=== PATIENT | male | born 1945 | race Caucasian/White ===

== ENCOUNTER 2018-07-28 13:32 | Emergency (ER) | payer OTHER ==
--- OUTSIDE RECORDS SUMMARY | 2018-07-28 13:44 | XMS REPORT | Continuity of Care Document ---
:1945 External Reference #:[id number] Author Name Manny Olivas MD Address [address] [facility] 1 [place] [address] Care Team Providers Name Role Phone Javed Wallis M.D. Care Team Information Packaging Associate Unavailable Manny Olivas MD Primary Care Physician Unavailable Payers Date Identification Numbers Payment Provider Subscriber Policy Number: [id number] Lifetime Benefit Solution Jimmie Valentino Group Number: [id number] [address] [address] PayID: [id number] STEFF Guzman [id number] Expires: 2000 Policy Number: [id number] Medicare Part B Jimmie Valentino PayID: [id number] [address] [place] [address] Advance Directives Description No Information Available Problems Date Description Provider Status Onset: 11/03/2012 Malignant tumor of lung Active Note: Stage Iib 05/31 L.[address]. adjacent to tumor. Dr. Lipscomb and Dr. Wallis follow pt. Diagnosed July 2006 had RLL lobectomy. Recurrence noted Apr 01, 2012.. Onset: 11/03/2012 Obese Active Onset: 11/03/2012 Malabsorption of glucose Active Note: borderline w FBS around 108.. Onset: 11/03/2012 Pulmonary emphysema Active Onset: 11/03/2012 Hypertensive disorder Active Onset: 11/03/2012 Hyperlipidemia Active Onset: 11/03/2012 Pulmonary embolism Active Note: Diagnosed in September 2012, during chemoradiation, managed by Dr. Wallis.. Onset: 04/30/2011 First degree atrioventricular block Active Note: and poor R wave progression in khushboo-septal leads, no change back to December 17, 2009 (and prior).. Onset: 10/03/2015 Gastroesophageal reflux disease Manny Olivas MD Active Onset: 04/28/2016 Raised prostate specific antigen Manny Olivas MD Active Note: PSA 5.0 on 04-25-16, was 3.7 on 03-28-15, s/p robotic prostatectomy September 03, [address] Kvng Arce Onset: 09/15/2016 Malignant tumor of prostate Manny Olivas MD Active Note: s/p robotic prostatectomy Jun 2016, Dr. Kvng Arce Riparius 3 + 3 Family History Description No Information Available Social History Type Date Description Comments Sex Unknown Tobacco Use Start: Unknown Patient has never smoked Allergies, Adverse Reactions, Alerts Description No Known Drug Allergies Medications Medication Date Status Form Strength Qnty SIG Indications Ordering Provider Cialis 07/25 Active Tablets 5mg 30tab 1 by mouth every s day Cora dupree MD Ranitidine 10/07 Active Capsules 300mg 180ca take 2 by mouth K21.9 Manny ps daily Cora dupree MD Atorvastatin 10/07 Active Tablets 40mg 90tab Take One Tablet Manny s By Mouth Every Day MD leia Vitamin D 09/22 Active Tablets 1000Unit 30tab 10 by mouth s every week Cora dupree MD Selenium 09/22 Active Capsules 200mcg 1 tablet a day. Cora dupree MD Glucosamine 09/22 Active Capsules 1500Com 90cap 1 by mouth every Manny s day Cora 1500 Complex MD leia Maximum Strength Valtrex 10/04 Active Tablets 500mg 180ta take one tablet bs by mouth two Cora times per day MD leia directed Lisinopril 10/04 Active Tablets 20mg 90tab Take One Tablet s By Mouth Every Day MD leia Vitamin C 11/11 Active Tablets 500mg 0tabs Use Directed 2 tabs PO qd Daily 09/24 Active Tablets 0tabs Take one tablet Unknown by mouth daily Vitamins/Mine rals Truvada Active Tablets 200-300mg 1 by mouth every Unknown /0000 day Biotin Active Capsules 5000mcg 1 by mouth every Unknown /0000 day Augmentin 05/19 Hx Tablets 500-125mg 20tab one tab every 12 J20.9 s hours x 10 days Cora dupree MD 06/21 Ranitidine 10/06 Hx Capsules 300mg 90cap 1 by mouth every K21.9 Manny HCL s day Cora dupree MD 04/29 Ranitidine 10/02 Hx Tablets 150mg 180ta take 1 tablet by K21.9 Manny HCL bs mouth 2 times Cristolebache - per day for MD leia 10/06 gastroesophageal reflux disease Boswell 3 09/23 Hx Capsules 1000mg 90cap take one a day s Cora dupree MD 06/21 Flaxseed Oil 09/22 Hx Capsules 1200mg 1 by mouth every day Cora dupree MD 06/21 Aspirin 09/22 Hx Chewtabs 81mg 42uni 1 by mouth every day Cora dupree MD 06/21 Lipitor 10/04 Hx Tablets 40mg 90tab Take one tablet s by mouth daily - 04/29 Omeprazole 03/12 Hx Capsules 40mg 0caps take [address] by oral route - every day before 10/01 a Folic Acid 00/00 Hx Tablets 1mg take 1 tablet Unknown /0000 (1MG) by oral - route every day 10/01 Truvada 00/00 Hx Tablets Unknown /0000 - 04/29 Immunizations CPT Code Status Date Vaccine Lot # [id number] Given 03/03/2017 Influenza Vaccine, High Dose > 65 Years Old [id number] (Includes Medicare) 00534 Given 03/18/2015 Influenza Vaccine, High Dose > 65 Years Old (Includes Medicare) 64228 Given 10/04/2014 Tdap 42000 Given 10/04/2014 Prevnar 13 U-Flu Given 02/15/2014 Influenza,Unspecified 95064 Given 03/02/2012 Influenza Virus Vaccine, [place] 3 [place] [address] Given 04/30/2011 Pneumococcal (Pneumovax 23) 30326 Given 02/28/2011 Influenza Virus Vaccine, [place] [address] Given 02/14/2009 Influenza Virus Vaccine, [place] [address] Given 06/22/2002 Influenza Virus Vaccine, Split [place] [address] Given 06/22/1997 Influenza Virus Vaccine, [place] [address] Given 06/22/1996 Influenza Virus Vaccine, Split [place] [address] Given 06/22/1994 Influenza Virus Vaccine, Split [place] [address] Given 06/22/1993 Influenza Virus Vaccine, Split 3 [place] [address] Given 06/22/1992 Pneumococcal (Pneumovax 23) 48125 Given 06/22/1992 Influenza Virus Vaccine, Split [place] [address] Given 06/22/1991 Influenza Virus Vaccine, Split 3 Yrs AB Vital Signs Date Vital Result Comment 07/25/2018 11:00am Height 70.75 inches 5'10.75" Weight 270.00 lb BMI (Body Mass Index) 37.9 kg/m2 BP Systolic 122 mmHg BP Diastolic 76 mmHg Heart Rate 94 /min O2 % BldC Oximetry 97 % 01/18/2018 1:14pm Height 70.75 inches 5'10.75" Weight 277.00 lb BMI (Body Mass Index) 38.9 kg/m2 BP Systolic 124 mmHg BP Diastolic 80 mmHg Heart Rate 72 /min O2 % BldC Oximetry 98 % 07/21/2017 12:52pm Height 70.75 inches 5'10.75" Weight 266.00 lb BMI (Body Mass Index) 37.4 kg/m2 BP Systolic 124 mmHg BP Diastolic 72 mmHg Heart Rate 76 /min O2 % BldC Oximetry 97 % 12/17/2016 11:41am Height 70.75 inches 5'10.75" Weight 265.00 lb BMI (Body Mass Index) 37.2 kg/m2 BP Systolic 124 mmHg BP Diastolic 68 mmHg Heart Rate 70 /min O2 % BldC Oximetry 98 % 09/15/2016 2:03pm Height 70.75 inches 5'10.75" BP Systolic 106 mmHg BP Diastolic 72 mmHg Heart Rate 87 /min O2 % BldC Oximetry 97 % 08/20/2016 10:28am Height 70.75 inches 5'10.75" BP Systolic 134 mmHg BP Diastolic 86 mmHg Heart Rate 82 /min O2 % BldC Oximetry 98 % 06/22/2016 11:27am Height 70.75 inches 5'10.75" Weight 264.00 lb BMI (Body Mass Index) 37.1 kg/m2 BP Systolic 114 mmHg BP Diastolic 74 mmHg Heart Rate 50 /min O2 % BldC Oximetry 96 % 05/19/2016 8:14am Height 70.75 inches 5'10.75" Weight 266.00 lb BMI (Body Mass Index) 37.4 kg/m2 BP Systolic 128 mmHg BP Diastolic 72 mmHg Heart Rate 76 /min O2 % BldC Oximetry 97 % 04/29/2016 9:56am Height 70.75 inches 5'10.75" Weight 260.38 lb BMI (Body Mass Index) 36.6 kg/m2 BP Systolic 114 mmHg BP Diastolic 72 mmHg Heart Rate 74 /min Respiratory Rate 17 /min 10/03/2015 9:59am Height 69.50 inches 5'9.50" Weight 266.00 lb BMI (Body Mass Index) 38.7 kg/m2 BP Systolic 138 mmHg BP Diastolic 74 mmHg Heart Rate 70 /min Body Temperature 98.1 F Body Temperature 36.7 C O2 % BldC Oximetry 96 % Respiratory Rate 20 /min 04/04/2015 11:32am Height 69.50 inches Weight 259.00 lb BMI (Body Mass Index) 37.70 kg/m2 BP Systolic 128 mmHg BP Diastolic 70 mmHg Heart Rate 89 /min O2 % BldC Oximetry 96 % 10/04/2014 9:12am Height 70.25 inches Weight 257.00 lb BMI (Body Mass Index) 36.61 kg/m2 BP Systolic 118 mmHg BP Diastolic 78 mmHg Heart Rate 82 /min O2 % BldC Oximetry 98 % 05/08/2014 1:57pm BMI (Body Mass Index) 36.61 kg/m2 Heart Rate 88 /min O2 % BldC Oximetry 97 % 05/08/2014 1:57pm Height 70.25 inches Weight 257.00 lb BMI (Body Mass Index) 36.61 kg/m2 BP Systolic 120 mmHg BP Diastolic 80 mmHg Heart Rate 88 /min O2 % BldC Oximetry 97 % 03/12/2014 9:44am Height 70.25 inches Weight 257.62 lb BMI (Body Mass Index) 36.70 kg/m2 BP Systolic 124 mmHg BP Diastolic 77 mmHg Heart Rate 93 /min 09/06/2013 1:03pm Heart Rate 72 /min 09/06/2013 1:03pm Weight 260.00 lb BP Systolic 106 mmHg BP Diastolic 76 mmHg Heart Rate 72 /min 03/09/2013 8:49am Heart Rate 72 /min 03/09/2013 8:49am Weight 249.00 lb BP Systolic 130 mmHg BP Diastolic 80 mmHg Heart Rate 72 /min 11/03/2012 11:07am Heart Rate 92 /min O2 % BldC Oximetry 97 % 11/03/2012 11:07am Weight 247.00 lb BP Systolic 133 mmHg BP Diastolic 83 mmHg Heart Rate 92 /min O2 % BldC Oximetry 97 % 08/10/2012 12:08pm Weight 256.00 lb BP Systolic 144 mmHg BP Diastolic 82 mmHg Heart Rate 74 /min 07/27/2012 4:01pm BP Systolic 172 mmHg BP Diastolic 88 mmHg 07/27/2012 4:01pm Height 71 inches Weight 257.00 lb BMI (Body Mass Index) 35.8 kg/m2 BP Systolic 168 mmHg BP Diastolic 90 mmHg Heart Rate 72 /min 05/09/2012 8:40am Height 70.50 inches Weight 244.00 lb BMI (Body Mass Index) 34.00 kg/m2 BP Systolic 108 mmHg BP Diastolic 62 mmHg Heart Rate 60 /min 03/15/2012 3:40pm BP Systolic 128 mmHg BP Diastolic 70 mmHg Heart Rate 68 /min 11/12/2011 11:44am Weight 253.38 lb BP Systolic 128 mmHg BP Diastolic 81 mmHg Heart Rate 87 /min Body Temperature 99.2 F Body Temperature 37.3 C O2 % BldC Oximetry 96 % 04/30/2011 10:04am Weight 248.00 lb BP Systolic 121 mmHg BP Diastolic 72 mmHg Heart Rate 67 /min O2 % BldC Oximetry 98 % 09/15/2010 11:05am Weight 250.00 lb BP Systolic 123 mmHg BP Diastolic 80 mmHg Heart Rate 80 /min O2 % BldC Oximetry 98 % 05/08/2010 11:11am Weight 254.00 lb BP Systolic 150 mmHg BP Diastolic 59 mmHg Heart Rate 71 /min 12/17/2009 11:20am Height 70.50 inches Weight 245.00 lb BMI (Body Mass Index) 34.00 kg/m2 BP Systolic 123 mmHg BP Diastolic 79 mmHg Heart Rate 60 /min 08/21/2009 9:43am Weight 249.00 lb BP Systolic 133 mmHg BP Diastolic 78 mmHg Heart Rate 66 /min 03/11/2009 1:57pm Weight 240.00 lb BP Systolic 120 mmHg BP Diastolic 70 mmHg Heart Rate 76 /min 10/31/2008 10:27am Weight 240.00 lb BP Systolic 121 mmHg BP Diastolic 77 mmHg Heart Rate 70 /min 09/24/2008 9:59am Weight 247.00 lb BP Systolic 146 mmHg BP Diastolic 95 mmHg Heart Rate 78 /min O2 % BldC Oximetry 98 % 06/27/2008 10:02am Weight 248.00 lb BP Systolic 145 mmHg BP Diastolic 88 mmHg Heart Rate 81 /min O2 % BldC Oximetry 96 % 05/03/2008 10:09am Weight 240.00 lb BP Systolic 143 mmHg BP Diastolic 84 mmHg Heart Rate 79 /min Results Test Date Facility Test Result H/L Range Note Laboratory test 07/21/2017 [facility] Hgb A1c 6.2 % 3.6-6.9 1 finding [address] [place] [address] [phone] Est. Average Glucose 131 mg/dL - 2 Venipuncture DONE - UA 07/21/2017 [facility] Color. YELLOW - [address] [place] [address] [phone] Clarity. CLEAR Clear-Clear Specific [place]. 1.023 1.005-1.030 PH. 5.0 4.6-8.0 Protein. NEGATIVE Neg-Negative Glucose, Urine NEGATIVE Neg-Negative Ketone. NEGATIVE Neg-Negative bilirubin. NEGATIVE Neg-Negative Blood. NEGATIVE Neg-Negative Nitrite. NEGATIVE Neg-Negative Leukocytes. NEGATIVE Neg-Negative 3 Laboratory test 07/21/2017 [facility] PSA <0.01 ng/ml Out 0-4.0 4 finding [address] [place] [address] [phone] CMP-Male 07/21/2017 [facility] Glucose 96 mg/dL 74-106 5 [address] [place] [address] [phone] BUN 20 mg/dL 6-20 Creatinine 1.0 mg/dL 0.5-1.3 Sodium 141 mmol/L 136-145 Potassium 4.5 mmol/L 3.5-5.3 Chloride 108 mmol/L High 98-107 Co2 24 mEq/L 20-31 Anion Gap 9 mmol/L 7-16 eGFR-male 74 mL/m/1.73m - eGFR-Aa male 89 mL/m/1.73m - 6 Alk. Phos. 79 U/L 46-116 Alt 21 U/L 4-36 7 Ast 22 U/L 8-33 Total Bilirubin 0.7 mg/dL 0.3-1.2 Total Protein 6.8 g/dL 6.4-8.3 8 Albumin 4.2 g/dL 3.6-5.1 A/G Ratio 1.6 Ratio 1.0-2.0 Globulin 2.6 g/dL 2.4-3.7 Calcium 8.8 mg/dL Low 8.9-10.5 Laboratory test 07/21/2017 [facility] Free T4 1.00 ng/dL 0.89-1.80 finding [address] [place] [address] [phone] TSH3 1.150 mIU/ml 0.350-5.500 JORDYN 07/21/2017 [facility] Direct Bilirubin 0.2 mg/dL 0.0-0.2 [address] [place] [address] [phone] Liver Panel 07/21/2017 [facility] LDH 154 U/L 120-246 [address] [place] [address] [phone] CBCP 07/21/2017 [facility] WBC 6.2 x10E3/uL 4.2-12.0 [address] [place] [address] [phone] RBC 4.53 x10E6/uL 4.4-6.0 HGB 14.9 g/dL 13.8-18.0 HCT 45.2 % 39-52 MCV 99.8 fL High 80-98 MCH 32.9 pg 27-33 MCHC 32.9 g/dL 32-36 RDW 13.5 % 11.2-15.2 PLT 178 x10E3/uL 135-420 MPV 10.0 fL 7.0-12.3 Cbcadp 08/20/2016 [facility] WBC 6.9 x10E3/uL 4.2-12.0 [address] [place] [address] [phone] RBC 4.68 x10E6/uL 4.4-6.0 HGB 15.3 g/dL 13.8-18.0 HCT 47.4 % 39-52 MCV 101.1 fL High 80-98 MCH 32.6 pg 27-33 MCHC 32.2 g/dL 32-36 RDW 14.3 % 11.2-15.2 PLT 220 x10E3/uL 135-420 MPV 9.6 fL 7.0-12.3 % Edith 69.4 % 41.0-80.0 %Lym 21.5 % 10.0-45.2 %Angelina 8.0 % 2.0-13.0 %Eos 0.9 % 0.0-8.0 %Baso 0.3 % 0.0-3.0 Neut 4.8 x10E3/uL 2.0-8.1 Lymp 1.5 x10E3/uL 0.6-3.1 Angelina 0.6 x10E3/uL 0.0-1.0 Eos 0.1 x10E3/uL 0.0-0.6 Baso 0.0 x10E3/uL 0.0-0.2 CMP-Male 08/20/2016 [facility] Glucose 103 mg/ dL 74-106 9 [address] [place] [address] [phone] BUN 20 mg/dL 6-20 Creatinine 1.1 mg/dL 0.5-1.3 Sodium 142 mmol/L 136-145 Potassium 4.5 mmol/L 3.5-5.3 Chloride 108 mmol/L High 98-107 Co2 26 mEq/L 20-31 Anion Gap 8 mmol/L 7-16 eGFR-male 66 mL/m/1.73m - eGFR-Aa male 80 mL/m/1.73m - 10 Alk. Phos. 86 U/L 46-116 Alt 22 U/L 4-36 Ast 27 U/L 8-33 Total Bilirubin 0.5 mg/dL 0.3-1.2 Total Protein 7.0 g/dL 6.4-8.3 11 Albumin 4.4 g/dL 3.4-4.8 A/G Ratio 1.7 Ratio 1.0-2.0 Globulin 2.6 g/dL 2.4-3.7 Calcium 9.0 mg/dL 8.9-10.5 [facility] 08/20/2016 [facility] Color. YELLOW - [address] [address] [phone] Clarity. CLEAR Clear-Clear Specific [place]. 1.015 1.005-1.030 PH. 5.5 4.6-8.0 Protein. NEGATIVE Neg-Negative Glucose, Urine NEGATIVE Neg-Negative Ketone. NEGATIVE Neg-Negative bilirubin. NEGATIVE Neg-Negative Blood. NEGATIVE Neg-Negative Nitrite. NEGATIVE Neg-Negative Leukocytes. NEGATIVE Neg-Negative Red Blood Cell 0-2 0-2 White Blood Cell 0-2 0-5 Squamous Epithelial Cell 0-2 0-10 Bacteria. NEGATIVE Neg-Negative Laboratory test 08/20/2016 [facility] Culture, Urine See Comment 12 finding [address] [place] [address] [phone] Venipuncture DONE - 13 Laboratory test finding 10/03/2015 [facility] TSH3 <pending> [address] [place] [address] [phone] Free T4 <pending> Free T4 03/28/2015 [facility] Free T4 0.96 ng/ dL [address] [place], [place] [address] [phone] Est. Average 03/28/2015 [facility] Est. Average 137 mg/dL 14 Glucose [address] [place] [address] [phone] CMP-Male 03/28/2015 [facility] A/G Ratio 1.8 Ratio [address] [place] [address] [phone] Albumin 4.5 g/dL Alk. Phos. 92 U/L Alt 19 U/L Anion Gap 8 mmol/L Ast 22 U/L BUN 19 mg/dL Calcium 9.9 mg/dL Chloride 108 mmol/L Co2 27 mEq/L Creatinine 1.1 mg/dL Globulin 2.5 g/dL Glucose 106 mg/dL 15 Potassium 4.6 mmol/L 16 Sodium 143 mmol/L Total Bilirubin 0.8 mg/dL Total Protein 7.0 g/dL 17 eGFR-Aa male 81 mL/m/1.73m 18 eGFR-male 67 mL/m/1.73m Cbcadp 03/28/2015 [facility] % Edith 63.8 % [address] [place] [address] [phone] %Baso 0.2 % %Eos 3.5 % %Lym 24.2 % %Angelina 8.3 % Baso 0.0 x10E3/uL Eos 0.3 x10E3/uL HCT 45.7 % HGB 14.9 g/dL Lymp 1.7 x10E3/uL MCH 31.7 pg MCHC 32.5 g/dL MCV 97.4 fL MPV 11.8 fL Angelina 0.6 x10E3/uL Neut 4.6 x10E3/uL PLT 136 x10E3/uL RBC 4.69 x10E6/uL RDW 15.6 % WBC 7.2 x10E3/uL Vitamin D, 25(Oh). 03/28/2015 [facility] Vitamin D, 22.70 ng/ml [address]). [place] [address] [phone] Venipuncture 03/28/2015 [facility] Venipuncture Done [address] [place] [address] [phone] Uric Acid 03/28/2015 [facility] Uric Acid 8.0 mg /dL [address] [place] [address] [phone] UA 03/28/2015 [facility] Blood. Negative [address] [place], [place] [address] [phone] Clarity. Clear Color. Yellow Glucose, Urine Negative Ketone. Negative Leukocytes. Negative 20 Nitrite. Negative Protein. Negative Specific [place]. 1.024 bilirubin. Negative PH. 5.5 TSH3 03/28/2015 [facility] TSH3 1.[address] mIU/[place] [address] [phone] Random Urine 03/28/2015 [facility] Random Urine 183.8 mg/dL [address] [place] [address] [phone] Random 03/28/2015 [facility] Random <6.0 mg/L [address] [place] [address] [phone] Phosphorus 03/28/2015 [facility] Phosphorus 3.6 mg/dL [address] [address] [phone] PSA 03/28/2015 [facility] PSA 3.7 ng/ml 23 [address] [address] [phone] LPP 03/28/2015 [facility] Cardiac Risk 3.85 Ratio [address] [address] [phone] Cholesterol 181 mg/dL HDL 47 mg/dL Triglycerides 185 mg/dL 24 VLDL 37 mg/dL LDL-Direct 03/28/2015 [facility] LDL-Direct 104 mg/dL [address] [address] [phone] LDH 03/28/2015 [facility] LDH 139 U/L [address] [address] [phone] Hgb A1c 03/28/2015 [facility] Hgb A1c 6.4 % [address] [place] [address] [phone] Phosphorus 09/28/2014 [facility] Phosphorus 3.3 mg/dL [address] [id number] [phone] LPP 09/28/2014 [facility] Cardiac Risk 3.56 Ratio [address] [id number] [phone] Cholesterol 171 mg/dL HDL 48 mg/dL Triglycerides 150 mg/dL 25 VLDL 30 mg/dL LDL-Direct 09/28/2014 [facility] LDL-Direct 108 mg/dL [address] [address] [phone] LDH 09/28/2014 [facility] LDH 142 U/L 26 [address] 6[address]2738 [phone] Hgb A1c 09/28/2014 [facility] Hgb A1c 6.2 % [address] [place] [address] [phone] HIV 1/O/2 09/28/2014 [facility] HIV 1/O/2 Nonreactive [address] [place] [address] [phone] HCV Ab 09/28/2014 [facility] HCV Ab Nonreactive [address] [place] [address] [phone] Free T4 09/28/2014 [facility] Free T4 0.99 ng/ dL [address] [place] [address] [phone] Est. Average 09/28/2014 [facility] Est. Average 131 mg/dL 27 Glucose [address] [place] [address] [phone] CMP-Male 09/28/2014 [facility] A/G Ratio 1.6 Ratio [address] [place] [address] [phone] Albumin 4.3 g/dL Alk. Phos. 82 U/L Alt 18 U/L Anion Gap 5 mmol/L Ast 20 U/L BUN 21 mg/dL Calcium 9.2 mg/dL Chloride 108 mmol/L Co2 31 mEq/L Creatinine 1.1 mg/dL Globulin 2.7 g/dL Glucose 108 mg/dL 28 Potassium 4.6 mmol/L Sodium 144 mmol/L Total Bilirubin 0.8 mg/dL Total Protein 7.0 g/dL 29 eGFR-Aa male 81 mL/m/1.73m 30 eGFR-male 67 mL/m/1.73m Cbcadp 09/28/2014 [facility] % Edith 63.7 % [address] [place] [address] [phone] %Baso 0.3 % %Eos 1.9 % %Lym 25.9 % %Angelina 8.1 % Baso 0.0 x10E3/uL Eos 0.1 x10E3/uL HCT 46.8 % HGB 14.6 g/dL Lymp 1.5 x10E3/uL MCH 30.6 pg MCHC 31.2 g/dL MCV 98.1 fL MPV 8.6 fL Angelina 0.5 x10E3/uL Neut 3.7 x10E3/uL PLT 217 x10E3/uL RBC 4.78 x10E6/uL RDW 14.9 % WBC 5.8 x10E3/uL Random 09/28/2014 [facility] Random <6.0 mg/L 31 [address] [place] [address] [phone] Random Urine 09/28/2014 [facility] Random Urine 152.0 mg/dL 32 Creatinine [address] [address] [phone] TSH3 09/28/2014 [facility] TSH3 1.451 mIU/ml [address] [place] [address] [phone] UA 09/28/2014 [facility] Blood. Negative [address] [place] [address] [phone] Clarity. Clear Color. Yellow Glucose, Urine Negative Ketone. Negative Leukocytes. Negative 33 Nitrite. Negative Protein. Negative Specific [place]. 1.023 bilirubin. Negative PH. 5.5 Uric Acid 09/28/2014 [facility] Uric Acid 8.9 mg /dL [address] [place] [address] [phone] Venipuncture 09/28/2014 [facility] Venipuncture Done [address] [place] [address] [phone] HIV 1/O/2 09/08/2013 [facility] HIV 1/O/2 Nonreactive [address] [place] [address] [phone] Venipuncture 09/06/2013 [facility] Venipuncture Done [address] [place] [address] [phone] Uric Acid 09/06/2013 [facility] Uric Acid 8.1 mg /dL [address] [place] [address] [phone] UA_M 09/06/2013 [facility] Bacteria. Negative [address] [place] [address] [phone] Blood. Negative Clarity. Clear Color. Yellow Glucose, Urine 1+ 34 Ketone. Negative Leukocytes. Negative Nitrite. Negative Protein. Negative Red Blood Cell 0-2 Specific [place]. 1.019 Squamous Epithelial Cell 0-2 White Blood Cell 0-2 bilirubin. Negative PH. 6.5 TSH3 09/06/2013 [facility] TSH3 1.552 [address] miu/[place] [address] [phone] Random Urine 09/06/2013 [facility] Random Urine 97.2 mg/dL 35 Creatinine [address] [place] [address] [phone] Random 09/06/2013 [facility] Random 45.6 mg/L 36 Microalbumin [address] [place] [address] [phone] Phosphorus 09/06/2013 [facility] Phosphorus 3.2 mg/dL [address] [place], [place] [address] [phone] LPP 09/06/2013 [facility] Cardiac Risk 3.53 Ratio [address] [place], [place] [address] [phone] Cholesterol 180 mg/dL HDL 51 mg/dL Triglycerides 167 mg/dL 37 VLDL 33 mg/dL LDL-Direct 09/06/2013 [facility] LDL-Direct 106 mg/dL [address] [place] [address] [phone] LDH 09/06/2013 [facility] LDH 168 U/L [address] [place] [address] [phone] Hgb A1c 09/06/2013 [facility] Hgb A1c 6.3 % [address] [place] [address] [phone] HCV Ab 09/06/2013 [facility] HCV Ab Nonreactive [address] [place] [address] [phone] Free T4 09/06/2013 [facility] Free T4 0.91 ng/ dL [address] [place] [address] [phone] Est. Average 09/06/2013 [facility] Est. Average 134 mg/dL 38 Glucose [address] Gl[place], [place] [address] [phone] CMP-Male 09/06/2013 [facility] Laboratories A/G Ratio 1.3 Ratio [address] [place], [place] [id number] [phone] Albumin 4.3 g/dL Alk. Phos. 71 U/L Alt 28 U/L Anion Gap 5 mmol/L Ast 30 U/L BUN 25 mg/dL Calcium 9.3 mg/dL Chloride 106 mmol/L Co2 31 mEq/L Creatinine 1.2 mg/dL Globulin 3.2 g/dL Glucose 97 mg/dL 39 Potassium 4.6 mmol/L Sodium 142 mmol/L Total Bilirubin 0.5 mg/dL Total Protein 7.5 g/dL 40 eGFR-Aa male 73 mL/m/1.73m 41 eGFR-male 61 mL/m/1.73m Cbcadp 09/06/2013 [facility] % Edith 63.9 % [address] [place] [address] [phone] %Baso 0.2 % %Eos 0.9 % %Lym 26.6 % %Angelina 8.5 % Baso 0.0 x10E3/uL Eos 0.1 x10E3/uL HCT 45.2 % HGB 14.6 g/dL Lymp 1.4 x10E3/uL MCH 30.2 pg MCHC 32.4 g/dL MCV 93.2 fL MPV 9.1 fL Angelina 0.4 x10E3/uL Neut 3.3 x10E3/uL PLT 208 x10E3/uL RBC 4.85 x10E6/uL RDW 14.4 % WBC 5.2 x10E3/uL Alb/Creat Ratio 09/06/2013 [facility] Alb/Creat Ratio 46.91 MG/G [address] [place] [address] [phone] Cbcadp 11/03/2012 [facility] % Edith 71.6 % [address] [place] [address] [phone] %Baso 0.2 % %Eos 1.4 % %Lym 17.8 % %Angelina 7.7 % Baso 0.0 x10E3/uL 42 Eos 0.1 x10E3/uL HCT 34.0 % HGB 10.5 g/dL Lymp 1.1 x10E3/uL MCH 30.4 pg MCHC 30.9 g/dL MCV 98.3 fL MPV 9.9 fL Angelina 0.5 x10E3/uL Neut 4.3 x10E3/uL PLT 227 x10E3/uL RBC 3.46 x10E6/uL RDW 15.0 % WBC 5.9 x10E3/uL CMP-Male 11/03/2012 [facility] A/G Ratio 1.2 Ratio [address] [place] [address] [phone] Albumin 4.1 g/dL Alk. Phos. 82 U/L Alt 14 U/L Anion Gap 10 mmol/L Ast 16 U/L BUN 22 mg/dL Calcium 9.1 mg/dL Chloride 107 mmol/L Co2 25 mEq/L Creatinine 1.0 mg/dL Globulin 3.5 g/dL Glucose 92 mg/dL 43 Potassium 4.3 mmol/L Sodium 142 mmol/L Total Bilirubin 0.3 mg/dL Total Protein 7.6 g/dL 44 eGFR-Aa male 91 mL/m/1.73m 45 eGFR-male 75 mL/m/1.73m Est. Average 11/03/2012 [facility] Est. Average 148 mg/dL 46 Glucose [address] [place] [phone] Hgb A1c 11/03/2012 [facility] Hgb A1c 6.8 % [address] [place] [phone] LDH 11/03/2012 [facility] LDH 162 U/L [address] [place] [address] [phone] LDL-Direct 11/03/2012 [facility] LDL-Direct 91 mg/dL [address] [place] [address] [phone] LPP 11/03/2012 [facility] Cardiac Risk 3.45 Ratio [address] [place] [address] [phone] Cholesterol 169 mg/dL HDL 49 mg/dL Triglycerides 148 mg/dL 47 VLDL 30 mg/dL Phosphorus 11/03/2012 [facility] Phosphorus 3.2 mg/dL [address] [place] [address] [phone] Uric Acid 11/03/2012 [facility] Uric Acid 7.0 mg /dL [address] [place] [address] [phone] Venipuncture 11/03/2012 [facility] Venipuncture Done [address] [place] [address] [phone] Vitamin D, 25(Oh). 11/03/2012 [facility] Vitamin D, 25(Oh). 25.89 ng/ml 48 [address] [place] [address] [phone] Vitamin D, 25(Oh). 08/10/2012 [facility] Vitamin D, 25(Oh). 30.04 ng/ml 49 [address] [place] [address] [phone] Venipuncture 08/10/2012 [facility] Venipuncture Done [address] [place] [address] [phone] Uric Acid 08/10/2012 [facility] Uric Acid 4.8 mg /dL [address] [place] [address] [phone] Phosphorus 08/10/2012 [facility] Phosphorus 3.3 mg/dL [address] [place] [address] [phone] Manual Diff 08/10/2012 [facility] Band 0 % [address] [place] [address] [phone] Basophils 0 % Eosinophils 0 % Lymph 7 % Monos 7 % Segs 86 % LDH 08/10/2012 [facility] LDH 176 U/L [address] [place] [phone] Hgb A1c 08/10/2012 [facility] Hgb A1c 7.0 % [address] [place] [address] [phone] Est. Average 08/10/2012 [facility] Est. Average 154 mg/dL 50 Glucose [address] [place] [address] [phone] Cholesterol 08/10/2012 [facility] Cholesterol 163 mg/dL [address] [place] [address] [phone] CMP-Male 08/10/2012 [facility] A/G Ratio 1.7 Ratio [address] [place] [address] [phone] Albumin 4.1 g/dL Alk. Phos. 59 U/L Alt 20 U/L Anion Gap 11 mmol/L Ast 19 U/L BUN 35 mg/dL Calcium 8.8 mg/dL Chloride 104 mmol/L Co2 27 mEq/L Creatinine 0.9 mg/dL Globulin 2.4 g/dL Glucose 114 mg/dL 51 Potassium 4.8 mmol/L Sodium 142 mmol/L Total Bilirubin 0.5 mg/dL Total Protein 6.5 g/dL 52 eGFR-Aa male 102 mL/m/1.73m 53 eGFR-male 85 mL/m/1.73m Advia Cbcadp 08/10/2012 [facility] % Edith 88.4 % [address] [place] [address] [phone] %Baso 0.0 % %Eos 0.1 % %Lym 5.3 % %Angelina 5.1 % Baso 0.0 x10E3/uL Eos 0.0 x10E3/uL HCT 34.8 % HGB 11.7 g/dL Lymp 0.4 x10E3/uL MCH 33.5 pg MCHC 33.6 g/dL MCV 99.8 fL MPV 9.8 fL Angelina 0.4 x10E3/uL Neut 6.7 x10E3/uL PLT 105 x10E3/uL RBC 3.49 x10E6/uL 54 RDW 17.1 % WBC 7.5 x10E3/uL Advia Cbcadp 05/09/2012 [facility] % Edith 78.9 % [address] [place] [address] [phone] %Baso 0.1 % %Eos 1.1 % %Lym 18.2 % %Angelina 1.2 % Baso 0.0 x10E3/uL Eos 0.1 x10E3/uL HCT 44.1 % HGB 14.5 g/dL Lymp 1.4 x10E3/uL MCH 31.1 pg MCHC 32.9 g/dL MCV 94.5 fL MPV 9.2 fL Angelina 0.1 x10E3/uL Neut 6.2 x10E3/uL PLT 235 x10E3/uL RBC 4.67 x10E6/uL RDW 13.1 % WBC 7.9 x10E3/uL CMP-Male 05/09/2012 [facility] A/G Ratio 1.7 Ratio [address] [place] [address] [phone] Albumin 4.1 g/dL Alk. Phos. 66 U/L Alt 35 U/L Anion Gap 6 mmol/L Ast 25 U/L BUN 26 mg/dL Calcium 9.0 mg/dL Chloride 104 mmol/L Co2 28 mEq/L Creatinine 1.0 mg/dL Globulin 2.4 g/dL Glucose 96 mg/dL 55 Potassium 4.4 mmol/L Sodium 138 mmol/L Total Bilirubin 0.7 mg/dL Total Protein 6.5 g/dL 56 eGFR-Aa male 91 mL/m/1.73m 57 eGFR-male 75 mL/m/1.73m WSR 05/09/2012 [facility] Westergren Sed 3 mm/ hr [address] [place] [address] [phone] Vitamin D, 25(Oh). 05/09/2012 [facility] Vitamin D, 30.11 ng/ml [address] 25([place]). [place] [address] [phone] Venipuncture 05/09/2012 [facility] Venipuncture Done [address] [place], [place] [address] [phone] Uric Acid 05/09/2012 [facility] Laboratories Uric Acid 6.2 mg /dL [address] [place] [address] [phone] UA 05/09/2012 [facility] Blood. Negative [address] [place] [address] [phone] Clarity. Clear Color. Yellow Glucose, Urine Negative Ketone. Negative Leukocytes. Negative 59 Nitrite. Negative Protein. Negative Specific [place]. 1.019 bilirubin. Negative PH. 5.5 TSH3 05/09/2012 [facility] TSH3 0.937 miu/ml [address] [address] [phone] Phosphorus 05/09/2012 [facility] Phosphorus 3.8 mg/dL [place] [address] [phone] PSA 05/09/2012 [facility] PSA 3.4 ng/ml 60 [address] [place] [address] [phone] LPP 05/09/2012 [facility] Cardiac Risk 2.76 Ratio [address] [place] [address] [phone] Cholesterol 152 mg/dL HDL 55 mg/dL Triglycerides 118 mg/dL 61 VLDL 24 mg/dL LDL-Direct 05/09/2012 [facility] LDL-Direct 77 mg/dL [place] [address] [phone] LDH 05/09/2012 [facility] LDH 117 U/L [place] [address] [phone] Free T4 05/09/2012 [facility] Free T4 1.20 ng/ dL [place] [address] [phone] PSA 11/12/2011 [facility] PSA 3.7 ng/ml 62 [address] [address] [phone] LPP 11/12/2011 [facility] Cardiac Risk 3.26 Ratio [place] [place] [address] [phone] Cholesterol 140 mg/dL HDL 43 mg/dL Triglycerides 156 mg/dL 63 VLDL 31 mg/dL LDL-Direct 11/12/2011 [facility] LDL-Direct 73 mg/dL [address] [place] [address] [phone] LDH 11/12/2011 [facility] LDH 143 U/L [address] [place] [address] [phone] Hgb A1c 11/12/2011 [facility] Hgb A1c 6.0 % [address] [place] [address] [phone] HIV 1/O/2 11/12/2011 [facility] HIV 1/O/2 Nonreactive [address] [place] [address] [phone] HBsAg 11/12/2011 [facility] HBsAg Nonreactive 64 [address] [place] [address] [phone] HBsAB 11/12/2011 [facility] HBsAB Reactive [address] [place] [address] [phone] Free T4 11/12/2011 [facility] Free T4 0.85 ng/ dL [address] [place] [address] [phone] Est. Average 11/12/2011 [facility] Est. Average 126 mg/dL 65 Glucose [address] [place] [address] [phone] CMP-Male 11/12/2011 [facility] A/G Ratio 1.4 Ratio [address] [place] [phone] Albumin 4.3 g/dL Alk. Phos. 74 U/L Alt 31 U/L Anion Gap 9 mmol/L Ast 30 U/L BUN 18 mg/dL Calcium 9.4 mg/dL Chloride 108 mmol/L Co2 25 mEq/L Creatinine 1.1 mg/dL Globulin 3 g/dL Glucose 100 mg/dL 66 Potassium 4.6 mmol/L Sodium 142 mmol/L Total Bilirubin 0.5 mg/dL Total Protein 7.3 g/dL 67 eGFR-Aa male 82 mL/m/1.73m 68 eGFR-male 67 mL/m/1.73m Advia Cbcadp 11/12/2011 [facility] % Edith 56.7 % [address] [place] [address] [phone] %Baso 0.6 % %Eos 1.0 % %Lym 32.1 % %Angelina 8.1 % Baso 0.0 x10E3/uL Eos 0.1 x10E3/uL HCT 44.3 % HGB 14.3 g/dL Lymp 1.9 x10E3/uL MCH 30.5 pg MCHC 32.4 g/dL MCV 94.3 fL MPV 11.0 fL Angelina 0.5 x10E3/uL Neut 3.3 x10E3/uL PLT 150 x10E3/uL 69 RBC 4.70 x10E6/uL RDW 13.1 % WBC 5.8 x10E3/uL Phosphorus 11/12/2011 [facility] Phosphorus 3.3 mg/dL [address] [place] [address] [phone] TSH3 11/12/2011 [facility] TSH3 0.792 miu/ml [address] [place] [address] [phone] Uric Acid 11/12/2011 [facility] Uric Acid 7.3 mg /dL [address] [place] [address] [phone] Venipuncture 11/12/2011 [facility] Venipuncture Done [address] [place] [phone] CMP-Male 05/08/2010 [facility] A/G Ratio 1.5 Ratio [address] [place] [address] [phone] Albumin 4.7 g/dL Alk. Phos. 66 U/L Alt 23 U/L Anion Gap 10 mmol/L Ast 25 U/L BUN 24 mg/dL Calcium 9.8 mg/dL Chloride 108 mmol/L Co2 25 mEq/L Creatinine 1.0 mg/dL Globulin 3.1 g/dL Glucose 100 mg/dL 70 Potassium 5.0 mmol/L Sodium 143 mmol/L Total Bilirubin 0.6 mg/dL Total Protein 7.8 g/dL 71 eGFR-male 75 mL/m/1.73m eGRF-Aa male 91 mL/m/1.73m 72 LDH 05/08/2010 [facility] LDH 188 U/L [address] [place] [address] [phone] LDL-Direct 05/08/2010 [facility] LDL-Direct 123 mg/dL [address] [place] [address] [phone] LPP 05/08/2010 [facility] Cardiac Risk 3.41 Ratio [address] [place] [address] [phone] Cholesterol 184 mg/dL HDL 54 mg/dL Triglycerides 105 mg/dL 73 VLDL 21 mg/dL Phosphorus 05/08/2010 [facility] Phosphorus 3.3 mg/dL [address] [place] [address] [phone] Uric Acid 05/08/2010 [facility] Uric Acid 7.4 mg /dL [address] [place] [address] [phone] Uric Acid 12/17/2009 [facility] Uric Acid 6.9 mg /dL [address] [place] [address] [phone] TSH3 12/17/2009 [facility] TSH3 0.931 miu/ml [address] [place] [address] [phone] Phosphorus 12/17/2009 [facility] Phosphorus 3.9 mg/dL [address] [place] [address] [phone] LDH 12/17/2009 [facility] LDH 138 U/L [address] [place] [phone] Hgb A1c 12/17/2009 [facility] Hgb A1c 6.0 % [address] [place] [address] [phone] Free T4 12/17/2009 [facility] Free T4 1.04 ng/ dL [address] [place] [address] [phone] Est. Average 12/17/2009 [facility] Est. Average 126 mg/dL 74 Glucose [address] [place] [address] [phone] Cardio CRP 12/17/2009 [facility] Cardio CRP 0.07 mg/dL 75 [address] [place] [address] [phone] CMP-Male 12/17/2009 [facility] A/G Ratio 1.3 Ratio [address] [place] [address] [phone] Albumin 4.3 g/dL Alk. Phos. 54 U/L Alt 18 U/L Anion Gap 5 mmol/L Ast 24 U/L BUN 19 mg/dL Calcium 9.7 mg/dL Chloride 109 mmol/L Co2 27 mEq/L Creatinine 1.1 mg/dL Globulin 3.2 g/dL Glucose 90 mg/dL 76 Potassium 4.5 mmol/L Sodium 141 mmol/L Total Bilirubin 0.9 mg/dL Total Protein 7.5 g/dL 77 eGFR-male 68 mL/m/1.73m eGRF-Aa male 82 mL/m/1.73m 78 Advia Cbcadp 12/17/2009 [facility] % Edith 57.0 % [address] [place] [address] [phone] %Baso 0.2 % %Eos 1.0 % %Lym 32.2 % %Angelina 8.5 % Baso 0.0 x10E3/uL 79 Eos 0.1 x10E3/uL HCT 45.0 % HGB 15.0 g/dL Lymp 2.2 x10E3/uL MCH 30.6 pg MCHC 33.2 g/dL MCV 92.2 fL MPV 10.8 fL Angelina 0.6 x10E3/uL Neut 3.9 x10E3/uL PLT 139 x10E3/uL RBC 4.89 x10E6/uL RDW 13.5 % WBC 6.9 x10E3/uL Vitamin D, 25(Oh) 08/23/2009 [facility] Vitamin D , 35 ng/mL 80 [address] 25(Oh) [place] [address] [phone] CMP-Male 08/21/2009 [facility] A/G Ratio 1.4 Ratio [address] [place] [address] [phone] Albumin 4.1 g/dL Alk. Phos. 56 U/L Alt 21 U/L Anion Gap 7 mmol/L Ast 25 U/L BUN 20 mg/dL Calcium 9.2 mg/dL Chloride 107 mmol/L Co2 28 mEq/L Creatinine 0.9 mg/dL Globulin 2.9 g/dL Glucose 96 mg/dL 81 Potassium 5.1 mmol/L Sodium 142 mmol/L Total Bilirubin 0.6 mg/dL Total Protein 7.0 g/dL 82 eGFR-male 86 mL/m/1.73m eGRF-Aa male 103 mL/m/1.73m 83 Free T4 08/21/2009 [facility] Free T4 0.81 ng/ dL [address] [place] [address] [phone] Hgb A1c 08/21/2009 [facility] Hgb A1c 6.2 % [address] [place] [address] [phone] LDH 08/21/2009 [facility] LDH 158 U/L [address] [place] [phone] LDL-Direct 08/21/2009 [facility] LDL-Direct 95 mg/dL [address] [place] [address] [phone] LPP 08/21/2009 [facility] Cardiac Risk 2.88 Ratio [address] [place] [address] [phone] Cholesterol 170 mg/dL HDL 59 mg/dL Triglycerides 71 mg/dL 84 VLDL 14 mg/dL PSA 08/21/2009 [facility] PSA 2.6 ng/ml 85 [address] [place] [address] [phone] Phosphorus 08/21/2009 [facility] Phosphorus 3.3 mg/dL [address] [place] [address] [phone] TSH3 08/21/2009 [facility] TSH3 0.788 miu/ml [address] [address] [phone] UA 08/21/2009 [facility] Blood. Negative [address] [address] [phone] Clarity. Clear Color. Yellow 86 Glucose, Urine Negative Ketone. Negative Leukocytes. Negative Nitrite. Negative Protein. Negative Specific [place]. 1.023 bilirubin. Negative PH. 5.5 Uric Acid 08/21/2009 [facility] Uric Acid 6.3 mg /dL [address] [address] [phone] Vitamin D, 25(Oh) 03/15/2009 [facility] Vitamin D , 25(Oh) 31 ng/mL 87 [address] [place] [address] [phone] Uric Acid 03/12/2009 [facility] Uric Acid 6.8 mg /dL [address] [place] [address] [phone] TSH3 03/12/2009 [facility] TSH3 0.828 miu/ml [address] [place] [address] [phone] Phosphorus 03/12/2009 [facility] Phosphorus 3.4 mg/dL [address] [place] [address] [phone] LPP 03/12/2009 [facility] Cardiac Risk 3.65 Ratio [address] [place] [address] [phone] Cholesterol 168 mg/dL HDL 46 mg/dL Triglycerides 160 mg/dL 88 VLDL 32 mg/dL LDL-Direct 03/12/2009 [facility] LDL-Direct 91 mg/dL [address] [place] [address] [phone] LDH 03/12/2009 [facility] LDH 156 U/L [address] [place] [address] [phone] Free T4 03/12/2009 [facility] Free T4 1.00 ng/ dL [address] [place] [address] [phone] CMP-Male 03/12/2009 [facility] A/G Ratio 1.5 Ratio [address] [place] [address] [phone] Albumin 4.6 g/dL Alk. Phos. 66 U/L Alt 18 U/L Anion Gap 6 mmol/L Ast 24 U/L BUN 18 mg/dL Calcium 9.5 mg/dL Chloride 105 mmol/L Co2 30 mEq/L Creatinine 1.0 mg/dL Globulin 3 g/dL Glucose 95 mg/dL 89 Patient Age 63 Potassium 4.5 mmol/L Sodium 141 mmol/L Total Bilirubin 0.6 mg/dL Total Protein 7.6 g/dL 90 eGFR-male 76 mL/m/1.73m eGRF-Aa male 92 mL/m/1.73m 91 Hgb A1c 03/11/2009 [facility] Hgb A1c 5.9 % [address] [place] [address] [phone] Glucose 10/31/2008 [facility] Glucose 100 mg/dL 92 [address] [place] [address] [phone] CMP-Male 09/24/2008 [facility] A/G Ratio 2.0 Ratio [address] [place] [address] [phone] Albumin 4.5 g/dL Alk. Phos. 63 U/L Alt 20 U/L Anion Gap 6 mmol/L Ast 23 U/L BUN 30 mg/dL Calcium 9.1 mg/dL Chloride 108 mmol/L Co2 27 mEq/L Creatinine 1.1 mg/dL Globulin 2.2 g/dL Glucose 123 mg/dL 93 Patient Age 62 Potassium 4.8 mmol/L Sodium 141 mmol/L Total Bilirubin 0.4 mg/dL Total Protein 6.7 g/dL 94 eGFR-male 68 mL/m/1.73m eGRF-Aa male 82 mL/m/1.73m 95 Uric Acid 09/24/2008 [facility] Uric Acid 7.6 mg /dL [address] [place] [address] [phone] Phosphorus 09/24/2008 [facility] Phosphorus 2.7 mg/dL [address] [place] [address] [phone] LDH 09/24/2008 [facility] LDH 135 U/L [address] [place] [phone] [phone] LPP 09/24/2008 [facility] Cardiac Risk 3.20 Ratio [address] [place] [address] [phone] Cholesterol 179 mg/dL HDL 56 mg/dL Triglycerides 109 mg/dL 96 VLDL 22 mg/dL LDL-Direct 09/24/2008 [facility] LDL-Direct 97 mg/dL [address] [place] [address] [phone] Advia Cbcadp 05/03/2008 [facility] Clinical Laboratories % Edith 59.9 % [address] [place] [address] [phone] % Edith 59.9 % %Baso 2.6 % %Baso 2.6 % %Eos 1.1 % %Eos 1.1 % %Lym 28.5 % %Lym 28.5 % %Angelina 6.6 % %Angelina 6.6 % Baso 0.2 3/uL Baso 0.2 3/uL Eos 0.1 3/uL Eos 0.1 3/uL HCT 44.6 % HCT 44.6 % HGB 14.7 g/dL HGB 14.7 g/dL Lymp 2.2 3/uL Lymp 2.2 3/uL MCH 30.1 pg MCH 30.1 pg MCHC 33.0 g/dL MCHC 33.0 g/dL MCV 91.2 fL MCV 91.2 fL MPV 10.8 fL MPV 10.8 fL Angelina 0.5 3/uL Angelina 0.5 3/uL Neut 4.6 3/uL Neut 4.6 3/uL PLT 235 3/uL PLT 235 3/uL RBC 4.89 6/uL RBC 4.89 6/uL RDW 13.5 % RDW 13.5 % WBC 7.7 3/uL WBC 7.7 3/uL LDH 05/03/2008 [facility] LDH 140 U/L [address] [address] [phone] LDH 140 U/L LDL-Direct 05/03/2008 [facility] LDL-Direct 113 mg/dL [address] [place] [address] [phone] LDL-Direct 113 mg/dL JORDYN 05/03/2008 [facility] Laboratories A/G Ratio 1.6 Ratio [address] [place] [address] [phone] A/G Ratio 1.6 Ratio Albumin 4.6 g/dL Albumin 4.6 g/dL Alk. Phos. 60 U/L Alk. Phos. 60 U/L Alt 21 U/L Alt 21 U/L Ast 20 U/L Ast 20 U/L Globulin 2.8 g/dL Globulin 2.8 g/dL Total Bilirubin 0.8 mg/dL Total Bilirubin 0.8 mg/dL Total Protein 7.4 g/dL Total Protein 7.4 g/dL LPP 05/03/2008 [facility] Cardiac Risk 3.[address] [place] [address] [phone] Cardiac Risk 3.40 Ratio Cholesterol 187 mg/dL Cholesterol 187 mg/dL HDL 55 mg/dL HDL 55 mg/dL Triglycerides 120 mg/dL 97 Triglycerides 120 mg/dL 98 VLDL 24 mg/dL VLDL 24 mg/dL PSA 05/03/2008 [facility] PSA 2.5 ng/ml 99 [address] [place] [address] [phone] PSA 2.5 ng/ml 100 CMP-Male 11/23/2007 [facility] A/G Ratio 1.[address] [place] [address] [phone] Albumin 4.5 g/dL Alk. Phos. 70 U/L Alt 21 U/L Anion Gap 10 mmol/L Ast 24 U/L BUN 22 mg/dL Calcium 10.0 mg/dL Chloride 103 mmol/L Co2 27 mEq/L Creatinine 1.5 mg/dL Globulin 3 g/dL Glucose 89 mg/dL 101 Patient Age 61 Potassium 4.5 mmol/L Sodium 140 mmol/L Total Bilirubin 0.5 mg/dL Total Protein 7.5 g/dL eGFR-male 51 mL/m/1.73m eGRF-Aa male 61 mL/m/1.73m 102 Cholesterol 11/23/2007 [facility] Cholesterol 189 mg/dL [address] [place] [address] [phone] LDH 11/23/2007 [facility] LDH 149 U/L [address] [place] [address] [phone] Hgb A1c 11/22/2007 [facility] Hgb A1c 5.8 % [address] [place] [phone] Alt 03/04/2007 [facility] Alt 11 U/L [address] [place] [address] [phone] BMP-Male 03/04/2007 [facility] Anion Gap 6 mmol/ L [address] [place] [id number] [phone] BUN 23 mg/dL Calcium 9.9 mg/dL Chloride 106 mmol/L Co2 29 mEq/L Creatinine 1.1 mg/dL Glucose 101 mg/dL 103 Patient Age 61 Potassium 4.7 mmol/L Sodium 141 mmol/L eGFR-male 73 mL/m/1.73m eGRF-Aa male 88 mL/m/1.73m 104 Hgb A1c 03/04/2007 [facility] Hgb A1c 5.2 % [address] [place] [address] [phone] LDL-Direct 03/04/2007 [facility] LDL-Direct 119 mg/dL [address] [place] [id number] [phone] LPP 03/04/2007 [facility] Cardiac Risk 3.92 Ratio [address] [place] [id number] [phone] Cholesterol 192 mg/dL HDL 49 mg/dL Triglycerides 75 mg/dL VLDL 15 mg/dL PSA 03/04/2007 [facility] PSA 2.5 ng/ml 105 [address] [place] [address] [phone] 1 Hgb A1c Interpretation: <5.8% - Non-diabetic >6.5% - Diabetic <7.0% - ADA diabetic treatment goal 2 The Estimated Average Glucose is a calculation of the average glucose over the last 120 days including non-fasting as well as fasting levels. 3 Urine Microscopic Not Indicated Due To Negative Urine Biochemistries 4 * Serum levels of PSA should not be interpreted as absolute * evidence of the presence or absence of disease. * The PSA value should be used in conjunction with information * obtained from clinical diagnostic procedure. Test performed * on the Siemens ADVIA Gravie[employer] using Chemiluminescence Method. * Values obtained with different assay methods or kits cannot * be used interchangeably. * 5 [place] [employer] (ADA) Recommended Range is 65-99 mg/dL 6 Normal Kidney Function or Mild Disease GFR >59 mL/min/1.73m2 Chronic Kidney Disease GFR 15-59 mL/min/1.73m2 Renal Failure GFR <15 mL/min/1.73m2 7 Effective 11/21/2016: [employer] has indicated interference with the drugs sulfasalazine and sulfapyridine. They suggest collection should occur prior to drug administration due to falsely depressed results. 8 Results may reflect a potential interference in Total Protein results in patients receiving dextran as blood volume expanders. 9 [place] [employer] (ADA) Recommended Range is 65-99 mg/dL 10 Normal Kidney Function or Mild Disease GFR >59 mL/min/1.73m2 Chronic Kidney Disease GFR 15-59 mL/min/1.73m2 Renal Failure GFR <15 mL/min/1.73m2 11 Results may reflect a potential interference in Total Protein results in patients receiving dextran as blood volume expanders. 12 Report Type: Final Sample Information Test: Culture, Urine Specimen Type: Source: Urine, Clean-catch Request Date/Time: 08/20/16 16:30 Collect Date/Time: 08/20/16 11:45 Receive Date/Time: 08/20/16 16:30 Status: Completed 08/21/2016 @ 13:07 Comment: CULTURE REPORT Plated Date/Time: / / : Elapsed Time Culture Report 18 Hours No Growth [address] Kvng Arce non fasting 14 The Estimated Average Glucose is a calculation of the average glucose over the last 120 days including non-fasting as well as fasting levels. 15 [place] [employer] (ADA) Recommended Range is 65-99 mg/dL 16 Please note: New reference range as of 01/31/2015 17 Results may reflect a potential interference in Total Protein results in patients receiving dextran as blood volume expanders. 18 Normal Kidney Function or Mild Disease GFR >59 mL/min/1.73m2 Chronic Kidney Disease GFR 15-59 mL/min/1.73m2 Renal Failure GFR <15 mL/min/1.73m2 19 Effective 03/16/2014 the Vitamin D 25 OH assay will reflect a restandardization of measurement between different laboratory methods. Patient results may reflect the following bias: Range (ng/mL) Average Expected Difference (ng/mL) <15 -1.5 15-30 2.1 30-50 -1.2 >50 -10.0 Recommended Levels for Circulating 25-hydroxy Vitamin D: Vitamin D Status 25-OH Vitamin D Test Result Deficient <10ng/mL Insufficient 10-29ng/mL Sufficient 30-100ng/mL Potential Intoxication >100ng/mL A pediatric reference range has not been established using this method. 20 Urine Microscopic Not Indicated Due To Negative Urine Biochemistries 21 Reference Range Random Urine Creatinine not defined 22 Reference Range for Random Microalbumin not defined Unable to calculate Albumin/Creatinine ratio with less than result. 23 * Serum levels of PSA should not be interpreted as absolute * evidence of the presence or absence of disease. * The PSA value should be used in conjunction with information * obtained from clinical diagnostic procedure. Test performed * on the [employer] using Chemiluminescence Method. * Values obtained with different assay methods or kits cannot * be used interchangeably. * 24 National Cholesterol Education Program (NCEP) Guidelines: Recommended Range <150 mg/dL 25 National Cholesterol Education Program (NCEP) Guidelines: Recommended Range <150 mg/dL 26 Effective 07/19/2014 the LDH range has been changed from 100-190 to 120-246. 27 The Estimated Average Glucose is a calculation of the average glucose over the last 120 days including non-fasting as well as fasting levels. 28 [place] [employer] (ADA) Recommended Range is 65-99 mg/dL 29 Results may reflect a potential interference in Total Protein results in patients receiving dextran as blood volume expanders. 30 Normal Kidney Function or Mild Disease GFR >59 mL/min/1.73m2 Chronic Kidney Disease GFR 15-59 mL/min/1.73m2 Renal Failure GFR <15 mL/min/1.73m2 31 Reference Range for Random Microalbumin not defined Unable to calculate Albumin/Creatinine ratio with less than result. 32 Reference Range Random Urine Creatinine not defined 33 Urine Microscopic Not Indicated Due To Negative Urine Biochemistries 34 Positive glucose confirmed by [employer] 35 Reference Range Random Urine Creatinine not defined 36 Reference Range for Random Microalbumin not defined 37 National Cholesterol Education Program (NCEP) Guidelines: Recommended Range <150 mg/dL 38 The Estimated Average Glucose is a calculation of the average glucose over the last 120 days including non-fasting as well as fasting levels. 39 [place] [employer] (ADA) Recommended Range is 65-99 mg/dL 40 Results may reflect a potential interference in Total Protein results in patients receiving dextran as blood volume expanders. 41 Normal Kidney Function or Mild Disease GFR >59 mL/min/1.73m2 Chronic Kidney Disease GFR 15-59 mL/min/1.73m2 Renal Failure GFR <15 mL/min/1.73m2 As of 07/23/2008 the equation used to calculate eGFR has been changed to reflect a reagent reformulation. The reference range has not been affected. 42 Platelets appear adequate on slide RBC Morphology appears normal on slide 43 [place] [employer] (ADA) Recommended Range is 65-99 mg/dL 44 Failed Delta Check 45 Normal Kidney Function or Mild Disease GFR >59 mL/min/1.73m2 Chronic Kidney Disease GFR 15-59 mL/min/1.73m2 Renal Failure GFR <15 mL/min/1.73m2 As of 07/23/2008 the equation used to calculate eGFR has been changed to reflect a reagent reformulation. The reference range has not been affected. 46 The Estimated Average Glucose is a calculation of the average glucose over the last 120 days including non-fasting as well as fasting levels. 47 National Cholesterol Education Program (NCEP) Guidelines: Recommended Range <150 mg/dL 48 Recommended Levels for Circulating 25-hydroxy Vitamin D: Vitamin D Status 25-OH Vitamin D Test Result Deficient <10ng/mL Insufficient 10-29ng/mL Sufficient 30-100ng/mL Potential Intoxication >100ng/mL A pediatric reference range has not been established using this method. 49 Recommended Levels for Circulating 25-hydroxy Vitamin D: Vitamin D Status 25-OH Vitamin D Test Result Deficient <10ng/mL Insufficient 10-29ng/mL Sufficient 30-100ng/mL Potential Intoxication >100ng/mL A pediatric reference range has not been established using this method. 50 The Estimated Average Glucose is a calculation of the average glucose over the last 120 days including non-fasting as well as fasting levels. 51 [place] [employer] (ADA) Recommended Range is 65-99 mg/dL 52 Results may reflect a potential interference in Total Protein results in patients receiving dextran as blood volume expanders. 53 Normal Kidney Function or Mild Disease GFR >59 mL/min/1.73m2 Chronic Kidney Disease GFR 15-59 mL/min/1.73m2 Renal Failure GFR <15 mL/min/1.73m2 As of 07/23/2008 the equation used to calculate eGFR has been changed to reflect a reagent reformulation. The reference range has not been affected. 54 1+ Macrocytosis Platelets appear slightly decreased on slide 55 [place] [employer] (ADA) Recommended Range is 65-99 mg/dL 56 Results may reflect a potential interference in Total Protein results in patients receiving dextran as blood volume expanders. 57 Normal Kidney Function or Mild Disease GFR >59 mL/min/1.73m2 Chronic Kidney Disease GFR 15-59 mL/min/1.73m2 Renal Failure GFR <15 mL/min/1.73m2 As of 07/23/2008 the equation used to calculate eGFR has been changed to reflect a reagent reformulation. The reference range has not been affected. 58 Recommended Levels for Circulating 25-hydroxy Vitamin D: Vitamin D Status 25-OH Vitamin D Test Result Deficient <10ng/mL Insufficient 10-29ng/mL Sufficient 30-100ng/mL Potential Intoxication >100ng/mL A pediatric reference range has not been established using this method. 59 Urine Microscopic Not Indicated Due To Negative Urine Biochemistries 60 * Serum levels of PSA should not be interpreted as absolute * evidence of the presence or absence of disease. * The PSA value should be used in conjunction with information * obtained from clinical diagnostic procedure. Test performed * on the [employer] using Chemiluminescence Method. * Values obtained with different assay methods or kits cannot * be used interchangeably. * 61 National Cholesterol Education Program (NCEP) Guidelines: Recommended Range <150 mg/dL 62 * Serum levels of PSA should not be interpreted as absolute * evidence of the presence or absence of disease. * The PSA value should be used in conjunction with information * obtained from clinical diagnostic procedure. Test performed * on the [employer] using Chemiluminescence Method. * Values obtained with different assay methods or kits cannot * be used interchangeably. * 63 National Cholesterol Education Program (NCEP) Guidelines: Recommended Range <150 mg/dL 64 A specimen repeatedly reactive to Hepatitis B surface antigen is not to be interpreted as positive. Confirmatory testing should be ordered to verify the status of the patient. 65 The Estimated Average Glucose is a calculation of the average glucose over the last 120 days including non-fasting as well as fasting levels. 66 [place] [employer] (ADA) Recommended Range is 65-99 mg/dL 67 Results may reflect a potential interference in Total Protein results in patients receiving dextran as blood volume expanders. 68 Normal Kidney Function or Mild Disease GFR >59 mL/min/1.73m2 Chronic Kidney Disease GFR 15-59 mL/min/1.73m2 Renal Failure GFR <15 mL/min/1.73m2 As of 07/23/2008 the equation used to calculate eGFR has been changed to reflect a reagent reformulation. The reference range has not been affected. 69 Large Platelets Present 70 [place] [employer] (ADA) Recommended Range is 65-99 mg/dL 71 Results may reflect a potential interference in Total Protein results in patients receiving dextran as blood volume expanders. 72 Normal Kidney Function or Mild Disease GFR >59 mL/min/1.73m2 Chronic Kidney Disease GFR 15-59 mL/min/1.73m2 Renal Failure GFR <15 mL/min/1.73m2 As of 07/23/2008 the equation used to calculate eGFR has been changed to reflect a reagent reformulation. The reference range has not been affected. 73 National Cholesterol Education Program (NCEP) Guidelines: Recommended Range <150 mg/dL 74 The Estimated Average Glucose is a calculation of the average glucose over the last 120 days including non-fasting as well as fasting levels. 75 Relative Risk Associated with Cardiovascular Disease: CDC/[place] [employer] Recommendation: [place] Range (mg/dL) <0.1 Low risk 0.1-0.3 Average risk >0.3 High Risk 76 [place] [employer] (ADA) Recommended Range is 65-99 mg/dL 77 Results may reflect a potential interference in Total Protein results in patients receiving dextran as blood volume expanders. 78 Normal Kidney Function or Mild Disease GFR >59 mL/min/1.73m2 Chronic Kidney Disease GFR 15-59 mL/min/1.73m2 Renal Failure GFR <15 mL/min/1.73m2 As of 07/23/2008 the equation used to calculate eGFR has been changed to reflect a reagent reformulation. The reference range has not been affected. 79 Platelets appear adequate on slide RBC Morphology appears normal on slide Large Platelets Present 80 Recommended Levels for Circulating 25-hydroxy Vitamin D: Vitamin D Status 25-OH Vitamin D Test Result Deficient <10ng/mL Insufficient 10-29ng/mL Sufficient 30-100ng/mL Potential Intoxication >100ng/mL A pediatric reference range has not been established using this method. 81 [place] [employer] (ADA) Recommended Range is 65-99 mg/dL 82 Results may reflect a potential interference in Total Protein results in patients receiving dextran as blood volume expanders. 83 Normal Kidney Function or Mild Disease GFR >59 mL/min/1.73m2 Chronic Kidney Disease GFR 15-59 mL/min/1.73m2 Renal Failure GFR <15 mL/min/1.73m2 As of 07/23/2008 the equation used to calculate eGFR has been changed to reflect a reagent reformulation. The reference range has not been affected. 84 National Cholesterol Education Program (NCEP) Guidelines: Recommended Range <150 mg/dL 85 * Serum levels of PSA should not be interpreted as absolute * evidence of the presence or absence of disease. * The PSA value should be used in conjunction with information * obtained from clinical diagnostic procedure. Test performed * on the [employer] using Chemiluminescence Method. * Values obtained with different assay methods or kits cannot * be used interchangeably. * 86 Urine Microscopic Not Indicated Due To Negative Urine Biochemistries 87 Recommended Levels for Circulating 25-hydroxy Vitamin D: Vitamin D Status 25-OH Vitamin D Test Result Deficient <10ng/mL Insufficient 10-29ng/mL Sufficient 30-100ng/mL Potential Intoxication >100ng/mL A pediatric reference range has not been established using this method. 88 National Cholesterol Education Program (NCEP) Guidelines: Recommended Range <150 mg/dL 89 [place] [employer] (ADA) Recommended Range is 65-99 mg/dL 90 Results may reflect a potential interference in Total Protein results in patients receiving dextran as blood volume expanders. 91 Normal Kidney Function or Mild Disease GFR >59 mL/min/1.73m2 Chronic Kidney Disease GFR 15-59 mL/min/1.73m2 Renal Failure GFR <15 mL/min/1.73m2 As of 07/23/2008 the equation used to calculate eGFR has been changed to reflect a reagent reformulation. The reference range has not been affected. 92 [place] [employer] (ADA) Recommended Range is 65-99 mg/dL 93 [place] [employer] (ADA) Recommended Range is 65-99 mg/dL 94 Results may reflect a potential interference in Total Protein results in patients receiving dextran as blood volume expanders. 95 Normal Kidney Function or Mild Disease GFR >59 mL/min/1.73m2 Chronic Kidney Disease GFR 15-59 mL/min/1.73m2 Renal Failure GFR <15 mL/min/1.73m2 As of 07/23/2008 the equation used to calculate eGFR has been changed to reflect a reagent reformulation. The reference range has not been affected. 96 National Cholesterol Education Program (NCEP) Guidelines: Recommended Range <150 mg/dL 97 National Cholesterol Education Program (NCEP) Guidelines: Recommended Range <150 mg/dL 98 National Cholesterol Education Program (NCEP) Guidelines: Recommended Range <150 mg/dL 99 * Serum levels of PSA should not be interpreted as absolute * evidence of the presence or absence of disease. * The PSA value should be used in conjunction with information * obtained from clinical diagnostic procedure. Test performed * on the [employer] using Chemiluminescence Method. * Values obtained with different assay methods or kits cannot * be used interchangeably. * 100 * Serum levels of PSA should not be interpreted as absolute * evidence of the presence or absence of disease. * The PSA value should be used in conjunction with information * obtained from clinical diagnostic procedure. Test performed * on the [employer] using Chemiluminescence Method. * Values obtained with different assay methods or kits cannot * be used interchangeably. * 101 [place] [employer] (ADA) Recommended Range is 65-99 mg/dL 102 Normal Kidney Function or Mild Disease GFR >59 mL/min/1.73m2 Chronic Kidney Disease GFR 15-59 mL/min/1.73m2 Renal Failure GFR <15 mL/min/1.73m2 103 [employer] [employer] (ADA) Recommended Range is 65-99 mg/dL 104 Normal Kidney Function or Mild Disease GFR >59 mL/min/1.73m2 Chronic Kidney Disease GFR 15-59 mL/min/1.73m2 Renal Failure GFR <15 mL/min/1.73m2 105 * Serum levels of PSA should not be interpreted as absolute * evidence of the presence or absence of disease. * The PSA value should be used in conjunction with information * obtained from clinical diagnostic procedure. Test performed * on the [employer] using Chemiluminescence Method. * Values obtained with different assay methods or kits cannot * be used interchangeably. * Procedures Date Code Description Status 08/20/2016 01124 Electrocardiogram Complete Completed 04/12/2013 85617 Echocardiography, Tranthoracic Real-Time Image Completed Documentation 02/03/2013 11076 Echocardiography, Tranthoracic Real-Time Image Completed Documentation 12/17/2009 80765 Electrocardiogram Complete Completed 07/27/2006 23108 Imaging Supervision Pulmonary/Coronary Angiography Completed 07/27/2006 44124 Imaging Supervision Ventricular/Atrial Angiography Completed 07/27/2006 92955 Injection For Coronary Angiography Completed 07/27/2006 87956 Injection For Left Ventricular Or Atrial Angiography Completed 07/27/2006 90766 Heart Catheterization Left Percutaneous Completed 07/26/2006 29206 Echocardiography Transthoracic W/Interpretation & Report Completed 07/26/2006 61955 Doppler Echocardiography Color Flow Velocity Mapping Completed 07/26/2006 74376 Doppler Echocardiography Complete Completed 07/26/2006 99757 Cardiovascular Stress Test W/Interpretation & Report Completed 05/26/2006 47318 Doppler Echocardiography Color Flow Velocity Mapping Completed 05/26/2006 26536 Doppler Echocardiography Complete Completed 05/26/2006 98232 Echocardiography Complete W/Out Spectral Or Color Doppler Completed ECHO Encounters Type Date Location Provider Dx Diagnosis Office Visit 01/18/2018 [facility] Primary Care Carly Lopez Essential ( primary) 1:15p AT Brigitte DIAZ hypertension Office Visit 07/21/2017 [facility] Primary Care Carly Lopez Essential ( primary) 1:15p AT Brigitte DIAZ hypertension K21.9 Gastro-esophageal reflux disease without esophagitis Z00.01 Encounter for general adult medical exam w abnormal findings Office Visit 12/17/2016 11:45a [facility] Primary Carly Lopez Essential (primary) Care AT MD pratima Briggs C61 Malignant neoplasm of prostate Office Visit 09/15/2016 2:00p [facility] Primary Manny Olivas MD C61 Malignant Care AT Brigitte neoplasm of prostate I10 Essential (primary) hypertension Office Visit 08/20/2016 10:30a [facility] Primary Carly Lopez Essential (primary) Care AT hypertension Brigitte Z01.818 Encounter for other preprocedural examination Office Visit 06/22/2016 11:15a [facility]MP Primary Manny Olivas, J20.9 Acute bronchitis, Care AT unspecified [place] I10 Essential (primary) hypertension Office Visit 05/19/2016 8:15a [facility]MP Primary Care AT Manny Olivas MD R05 Cough [place] J20.9 Acute bronchitis, unspecified Office Visit 04/29/2016 9:15a CMP Primary Care AT Manny Olivas MD R05 Cough [place] I10 Essential (primary) hypertension C34.90 Malignant neoplasm of unsp part of unsp bronchus or lung K21.9 Gastro-esophageal reflux disease without esophagitis Z00.01 Encounter for general adult medical exam w abnormal findings R97.20 Elevated prostate specific antigen [PSA] Office Visit 10/03/2015 10:00a [facility]MP Primary Care AT Manny Olivas MD R05 Cough [place] I10 Essential (primary) hypertension C34.90 Malignant neoplasm of unsp part of unsp bronchus or lung K21.9 Gastro-esophageal reflux disease without esophagitis Plan of Treatment 07/25/2018 - Manny Olivas MDZ00.01 Encounter for general adult medical examination with abnormal [id number] Cellulitis of right fingerComments: healing phase of paronychia, no pus - just pink and disrupted junction of cuticle. Needs warm soaks and "[employer]" cuticle wax until healed.I10 Essential (primary) hypertensionFollow up:BP check in 6 months
[2018-07-28 16:03] VITALS: BP 153/81
--- NOTE | 2018-07-28 16:25 | UC ---
Hand/Wrist HPI - HPI Summary HPI Summary: has been self treating an infected cuticle for the last week, it is draining, but red and swollen - History Of Current Complaint Chief Complaint: UCSkin Stated Complaint: RT HAND-MIDDLE FINGER CONCERN Time Seen by Provider: 07/28/18 16:19 Hx Obtained From: Patient ?: No Onset/Duration: Sudden Onset, Lasting Weeks - 1 Severity Initially: Moderate Severity Currently: Moderate Pain Intensity: 4 Aggravating Factor(s): Movement Alleviating Factor(s): Rest Associated Signs And Symptoms: Positive: Swelling, Redness - Allergies/Home Medications Allergies/Adverse Reactions: Allergies Allergy/AdvReac Type Severity Reaction Status Date / Time No Known Allergies Allergy Verified 07/28/18 16:00 Home Medications: Home Medications Atorvastatin Calcium [Lipitor] 40 mg PO DAILY 07/28/18 [History Confirmed ] Lisinopril [Zestril] 10 g PO DAILY 07/28/18 [History Confirmed 07/28/18] Tadalafil [Cialis] 5 mg PO DAILY 07/28/18 [History Confirmed 07/28/18] raNITIdine HCl [Ranitidine HCl] 150 mg PO DAILY 07/28/18 [History Confirmed 12/09] PMH/Surg Hx/FS Hx/Imm Hx Previously Healthy: Yes - Surgical History Surgical History: Yes Surgery Procedure, Year, and Place: HERNIA,WISDOM TEETH, RT LOWER LOBECTOMY - Family History Known Family History: Positive: Hypertension - Social History Alcohol Use: Rare Substance Use Type: None Smoking Status (MU): Never Smoked Tobacco Review of Systems All Other Systems Reviewed And Are Negative: Yes Constitutional: Positive: Negative Skin: Positive: Other - red swollen right mid cuticle Eyes: Positive: Negative ENT: Positive: Negative Respiratory: Positive: Negative Cardiovascular: Positive: Negative Gastrointestinal: Positive: Negative Genitourinary: Positive: Negative Motor: Positive: Negative Neurovascular: Positive: Negative Musculoskeletal: Positive: Negative Neurological: Positive: Negative Psychological: Positive: Negative Is Patient Immunocompromised?: No Physical Exam Triage Information Reviewed: Yes Appearance: Well-Appearing, Well-Nourished, Pain Distress Vital Signs: Initial Vital Signs Temp 97.2 F 07/28/18 15:58 Pulse 81 07/28/18 15:58 Resp 17 07/28/18 15:58 BP 153/81 07/28/18 15:58 Pulse Ox 100 07/28/18 15:58 Vital Signs Reviewed: Yes Eye Exam: Normal ENT Exam: Normal Dental Exam: Normal Neck exam: Normal Respiratory Exam: Normal Cardiovascular Exam: Normal Abdominal Exam: Normal Musculoskeletal Exam: Normal Neurological Exam: Normal Psychological Exam: Normal Skin: Positive: Other - right middle finger cuticle is red and swollen, small scab where it has been draining Hand/Wrist Course/Dx - Course Course Of Treatment: hx obtained, exam performed ,meds reviewed, treated for paronychia - Differential Dx/Diagnosis Differential Diagnosis/HQI/PQRI: Paronychia Provider Diagnosis: Paronychia of finger Discharge - Sign-Out/Discharge Documenting (check all that apply): Patient Departure All imaging exams completed and their final reports reviewed: No Studies - Discharge Plan Condition: Stable Disposition: HOME Prescriptions: Cephalexin CAP* [Keflex CAP*] 500 mg PO BID #14 cap Patient Education Materials: Paronychia (ED) Referrals: Brendon DIAZ,Manny Arce [Primary Care Provider] - Additional Instructions: 1. take the medication as prescribed. 2. Soak the finger twice a day in epsom salt. 3. Follow up if not improving. - Billing Disposition and Condition Condition: STABLE Disposition: Home
== END 2018-07-28 16:29 | disposition home or self-care (01) ==
LOC: UCCORT 13:32
DX: L03.011 Cellulitis of right finger (principal)
CPT/HCPCS: 99202; G0463

== ENCOUNTER 2018-08-05 12:36 | Emergency (ER) | payer OTHER ==
[2018-08-05 12:54] VITALS: BP 137/79
--- NOTE | 2018-08-05 13:05 | UC ---
Respiratory Complaint HPI - HPI Summary HPI Summary: productive cough x 3 days green / yellow sputum nasal congestion , pnd, no fever, + chills no weakness , no chest pain hx of lung CA and pneumonia - History of Current Complaint Chief Complaint: UCRespiratory Stated Complaint: CHEST CONGESTION Time Seen by Provider: 08/05/18 12:52 Hx Obtained From: Patient Onset/Duration: Gradual Onset, Lasting Days - 3, Still Present Timing: Constant Severity Initially: Moderate Severity Currently: Moderate Pain Intensity: 0 Character: Cough: Productive Aggravating Factors: Exertion, Deep Breaths Alleviating Factors: Nothing Associated Signs And Symptoms: Positive: URI, Nasal Congestion. Negative: Dyspnea, Fever, Chills, Wheezing, Hemoptysis, Dizziness, Calf Pain, Calf Swelling - Allergies/Home Medications Allergies/Adverse Reactions: Allergies Allergy/AdvReac Type Severity Reaction Status Date / Time No Known Allergies Allergy Verified 08/05/18 12:48 PMH/Surg Hx/FS Hx/Imm Hx Cardiovascular History: Hypertension Cancer History: Lung Cancer - Surgical History Surgical History: Yes Surgery Procedure, Year, and Place: HERNIA,WISDOM TEETH, RT LOWER LOBECTOMY, prostectomy - Family History Known Family History: Positive: Hypertension - Social History Alcohol Use: Rare Substance Use Type: None Smoking Status (MU): Never Smoked Tobacco Review of Systems All Other Systems Reviewed And Are Negative: Yes Constitutional: Positive: Negative Skin: Positive: Negative Eyes: Positive: Negative ENT: Positive: Nasal Discharge Respiratory: Positive: Cough Cardiovascular: Positive: Negative Gastrointestinal: Positive: Negative Is Patient Immunocompromised?: No Physical Exam Triage Information Reviewed: Yes Appearance: Well-Appearing, No Pain Distress, Well-Nourished Vital Signs: Initial Vital Signs Temp 97.8 F 08/05/18 12:48 Pulse 89 08/05/18 12:48 Resp 18 08/05/18 12:48 BP 137/79 08/05/18 12:48 Pulse Ox 96 08/05/18 12:48 Vital Signs Reviewed: Yes Eye Exam: Normal Eyes: Positive: Conjunctiva Clear ENT: Positive: Normal ENT inspection, Hearing grossly normal, Pharynx normal Neck exam: Normal Neck: Positive: Supple, Nontender, No Lymphadenopathy Respiratory: Positive: Chest non-tender, Crackles, Wheezing Cardiovascular: Positive: RRR, No Murmur, Pulses Normal Skin Exam: Normal Respiratory Course/Dx - Differential Dx/Diagnosis Provider Diagnosis: Bronchitis Discharge - Sign-Out/Discharge Documenting (check all that apply): Patient Departure All imaging exams completed and their final reports reviewed: No Studies - Discharge Plan Condition: Stable Disposition: HOME Prescriptions: DOXYcycline CAP(*) [DOXYcycline 100MG CAP(*)] 100 mg PO BID #20 cap Patient Education Materials: Acute Bronchitis (ED) Referrals: Brendon DIAZ,Manny Arce [Primary Care Provider] - 7 Days - Billing Disposition and Condition Condition: STABLE Disposition: Home
== END 2018-08-05 13:07 | disposition home or self-care (01) ==
LOC: UCCORT 12:36
DX: J40 Bronchitis, not specified as acute or chronic (principal); I10 Essential (primary) hypertension; Z85.118 Personal history of other malignant neoplasm of bronchus and lung
CPT/HCPCS: 99212; G0463